=== PATIENT | female | born 1940 | race Caucasian/White ===

== ENCOUNTER 2016-08-29 07:33 | Inpatient (IN) | payer MEDICARE ==
[~2016-08-29] VITALS: Ht 149.9 cm; Wt 45.7 kg
[2016-08-29] VITALS (11 sets, daily range): BP systolic 101–152; BP diastolic 52–71; PULSE 77–109; RESP 16–18; O2SAT 92–100
--- NOTE | 2016-08-29 07:25 | ED.REPORT ---
HPI-Syncope Date of Service Aug 29, 2016 ED Provider: Eyad Badillo DO 76 year old female presents to the ER via EMS due to a witnessed syncopal event just prior to arrival. EMS reports that the patient's daughter saw the patient start to fall and was able to catch her and lower her to the ground. Patient reports that she awakened this morning "not feeling very well". Associated symptom of shaking chills, and diarrhea. Patient denies headache, head trauma, chest pain, SOB, and weakness/numbness/tingling. She recently finished a course of antibiotics to treat pneumonia. Her recently had surgery and is being treated for C. diff, and she has recently been very active in caring for him since he has been home from the hospital. Nursing Notes Stated Complaint: SYNCOPE Nursing Notes Reviewed: Yes Allergies: Coded Allergies: No Known Allergies (Unverified , 08/29/16) General Time Seen by Provider: 07:33 Chief Complaint Lost consciousness Hx Obtained From: Patient Arrived By: Ambulance Onset Occurred: Just prior to arrival Associated with: Denies: Chest pain, Fever, Headache, Numbness, Shortness of breath, Weakness Similar Sx Previous: No Past Medical History Past Medical History PVD Past Surgical History Reports: (x2) Smoking History Current Every Day Smoker Social History Other Social History: Review of Systems Constitutional: Reports: Chills, Malaise Respiratory: Denies: Non-productive cough, Shortness of breath Cardiovascular: Denies: Chest pain GI: Reports: Abdominal pain, Diarrhea, Denies: Nausea, Vomiting Musculoskeletal: Denies: Back pain, Extremity pain, Lumbar pain, Neck pain Neurologic: Reports: Syncope, Denies: Focal weakness, Headache, Numbness, Weakness Complete sys rev & neg: except as marked. Physical Exam Initial Vital Signs Vital Signs (First) Date Time Temp Pulse Resp B/P Pulse Ox O2 Delivery O2 Flow Rate FiO2 08/29/16 07:43 37.1 109 18 152/71 94 Room Air Initial VS: Reviewed Head / Eyes: Atraumatic, Normocephalic Neck: Supple, Non-tender, Full range of motion Abdomen / GI: Soft, Non-tender, No guarding, No rebound, No distention Upper Extremities: Vascular intact, Neuro intact, No swelling, No tenderness General/Constitutional: Awake, Alert, Well developed, Well nourished Respiratory / Chest: Breath sounds NL, Breath sounds = bilat, No respiratory distress, No rales, No rhonchi, No wheezing Cardiovascular: Heart rate NL, Regular rhythm, Heart sounds NL, No murmurs, Cap refill not delayed, Peripheral circulation NL Lower Extremity / Pelvis / MS: Inspection NL, No swelling, Non-tender, No erythema, No deformity, Neurologic intact, Vascular intact, No edema Neurologic: Oriented X3, Speech NL, No sensory deficits Tremulous. Interpretation & Diagnostics Lab Results Interpretation Result Diagram: 08/29/16 0825 08/29/16 0825 Test 08/29/16 08:25 08/29/16 09:55 White Blood Count 29.6th/mm3 (3.8-10.1) Red Blood Count 4.15mil/mm3 (3.90-5.20) Hemoglobin 12.7g/dL (12.0-15.6) Hematocrit 38.4% (35.0-46.0) Mean Corpuscular Volume 92.5fL (81-100) Mean Corpuscular Hemoglobin 30.6pg (27.0-35.0) Mean Corpuscular Hemoglobin Concent 33.1% (32.0-37.0) Red Cell Distribution Width 13.2% (12.3-15.4) Platelet Count 230bil/L (150-400) Neutrophils (%) (Auto) 88.4% (40-74) Lymphocytes (%) (Auto) 2.1% (14-46) Monocytes (%) (Auto) 8.6% (4-12) Eosinophils (%) (Auto) 0% (0-5) Basophils (%) (Auto) 0.1% (0-3) D-Dimer 5.7mg/L (<0.50) Sodium Level 139mEq/L (134-144) Potassium Level 3.4mEq/L (3.5-5.2) Chloride Level 103mEq/L (97-108) Carbon Dioxide Level 21mmol/L (18-29) Blood Urea Nitrogen 9mg/dL (8-27) Creatinine 0.64mg/dL (0.57-1.00) Estimat Glomerular Filtration Rate 129mL/min (>59) Glucose Level 107mg/dL (60-99) Calcium Level 7.6mg/dL (8.5-10.1) Magnesium Level 1.5mg/dL (1.6-2.6) Total Bilirubin 0.4mg/dL (0.0-1.2) Aspartate Amino Transf (AST/SGOT) 15U/L (0-50) Alanine Aminotransferase (ALT/SGPT) 11U/L (0-32) Alkaline Phosphatase 82U/L (25-165) Troponin T < 0.010ug/L (0.0-0.011) Total Protein 7.1g/dL (6.4-8.4) Albumin 3.2g/dL (3.4-5.0) Lactic Acid Level 1.0mmol/L (0.4-2.0) ECG Interpretation ECG Interpretation: Sinus rhythm, rate [address] changes Prolonged QT interval Time: 07:56 Interpreted by: ED physician X-Ray Chest Interpretation Chest Xray Interpretation: IMPRESSION: No acute cardiopulmonary disease. Dictated by: Nadir Conti RRA Interpreted: Patty Jacome MD on 08/29/2016 at 9:59 Transcribed by: TRACI on 08/29/2016 at 9:59 View: Portable, 1 view Interpretation / Wet Read by: Interpret - Radiologist CT Chest Interpretation IMPRESSION: 1. No evidence of pulmonary embolism. 2. Mild distal esophageal thickening with hiatal hernia. Thickening could be related to esophagitis and clinical correlation is recommended. Dictated by: Patty Jacome M.D. on 08/29/2016 at 10:50 Approved by: Patty Jacome M.D. on 08/29/2016 at 10:52 Study type: CT pulm angiogram Interpretation / Wet Read by: Interpret - Radiologist CT Abd / Pelvis Interpretation IMPRESSION: 1. Significant colonic thickening as described above most significant in the right and transverse colon. Findings are most likely related to colitis secondary to infection or inflammation. However, ischemic colitis should be considered. 2. Cholelithiasis without imaging evidence of cholecystitis. Dictated by: Patty Jacome M.D. on 08/29/2016 at 10:53 Approved by: Patty Jacome M.D. on 08/29/2016 at 10:59 Study type: Abdominal CT IV contrast Interpretation / Wet Read by: Interpret - Radiologist Re-Eval/Medical Decision Med Decision/Clinical Course Concern for C. difficile colitis. Profound leukocytosis at this time she is not in septic shock. She will be admitted. oral vancomycin initiated. Source of Hx: Old records Re-Evaluation/Progress : Time of Eval: 08:57 Re-Evaluation/Progress Note: Discussed lab results. Updated patient on the plan of care. Consultation : Referral / Consult Name: Jax Wang MD Consulted With: Hospitalist Call Returned at: 11:29 Insole Rasper: Will see patient, Agrees with eval, Agrees with plan, Accepts admit Counseled Regarding: Diagnosis, Lab results, Need for admission Discharge & Departure Impression: Primary Impression: Colitis Additional Impression: Syncope Disposition: ADMITTED TO HOSPITAL Discharge Condition All VS Reviewed: Yes Condition: Stable Referrals: Bia Simpson MD (PCP) Chance Attestation Portions of this note were transcribed by Una Willis. I, Dr. Badillo, personally performed the history, physical exam and medical decision-making; I reviewed and confirmed the accuracy of the information in the transcribed note. Signed by: Chance Bray, 08/29/2016 and 11:30 copies to: Bia Simpson MD, Timothy S DO Aug 29, 2016 07:25 UNA WILLIS Aug 29, 2016 07:40
[2016-08-29] MEDS ORDERED: 0.9% Sodium Chloride 1,000 ML IV ONE ×2 (07:41→09:55)
[2016-08-29] MEDS ORDERED: Ondansetron 2 mg/mL 2 mL Inj IV PRN (07:45)
[2016-08-29 08:42] LABS: BASOPHILS % (AUTO) 0.1 % (0-3); EOSINOPHILS % (AUTO) 0 % (0-5); MONOCYTES % (AUTO) 8.6 % (4-12); Mean Corpuscular Hemoglobin 30.6 pg (27.0-35.0); Mean Corpuscular Volume 92.5 fL (81-100); NEUTROPHILS % (AUTO) 88.4 % (40-74); Platelet Count 230 bil/L (150-400)
[2016-08-29 09:04] LABS: TROPONIN T < 0.010 ug/L (0.0-0.011)
[2016-08-29 09:13] LABS: Magnesium 1.5 mg/dL (1.6-2.6)
[2016-08-29] MEDS ORDERED: Magnesium Sulf 4 Gm/100 mL H2O 4 GM in IV Premix 1 EACH IV ONE (09:15)
--- NOTE | 2016-08-29 09:59 | DRSVH ---
PROCEDURE: X-RAY CHEST ONE VIEW, PORTABLE ([id number]) INDICATIONS: recent pneumonia, syncope TECHNIQUE: One view of the chest was acquired. COMPARISON: None. FINDINGS: Surgical changes and devices: None. Lungs and pleura: No pleural effusions or pneumothorax. Lungs are clear. Mediastinum: Mediastinal contours appear normal. Heart size is normal. Bones and chest wall: No suspicious bony lesions. Overlying soft tissues appear unremarkable. IMPRESSION: No acute cardiopulmonary disease. Dictated by: Nadir Conti [facility] Interpreted: Patty Jacome MD on 08/29/2016 at 9:59 Transcribed by: TRACI on 08/29/2016 at 9:59 Approved by: Patty Jacome M.D. on 08/29/2016 at 21:14
--- NOTE | 2016-08-29 10:54 | DRSVH ---
PROCEDURE: CT ANGIO CHEST PULMONARY EMBOLISM ([id number]) INDICATIONS: syncope, elevated ddimer TECHNIQUE: After the administration of intravenous contrast, 2 mm thick sections acquired from the pulmonary api perico to the posterior costophrenic angles. 3-dimensional maximum intensity projection (MIP) coronal a nd sagittal reformats were then acquired through the thorax. For radiation dose reduction, the follo wing was used: automated exposure control, adjustment of mA and/or kV according to patient size. COMPARISON: None. FINDINGS: Image quality: Excellent. Pulmonary arteries: Pulmonary arteries are normal in size, and demonstrate no intraluminal filling d efects to suggest central pulmonary embolism. Lungs and pleura: Lungs are clear. No pleural effusions or pneumothorax. Central and peripheral ai rways are patent. Mediastinum: Heart size is normal, without pericardial effusion. No mediastinal or hilar adenopathy . Thoracic aorta is normal in caliber and enhancement. Esophagus demonstrates mild distal thickenin g with hiatal hernia. Bones and chest wall: No suspicious bony lesions. Ribs and thoracic spine appear intact throughout. Thyroid gland is unremarkable. No axillary or supraclavicular adenopathy. Abdomen: Visualized upper abdominal solid organs appear normal in the early arterial phase of enhanc ement. IMPRESSION: 1. No evidence of pulmonary embolism. 2. Mild distal esophageal thickening with hiatal hernia. Thickening could be related to esophagitis a nd clinical correlation is recommended. Dictated by: Patty Jacome M.D. on 08/29/2016 at 10:50 Approved by: Patty Jacome M.D. on 08/29/2016 at 10:52
--- NOTE | 2016-08-29 11:00 | DRSVH ---
PROCEDURE: CT ABDOMEN AND PELVIS WITH CONTRAST ([id number]) INDICATIONS: WBC 29K, diarrhea, syncope, weakness TECHNIQUE: After the administration of intravenous contrast, 5 mm thick sections acquired from the diaphragm to the symphysis. 5 mm coronal and sagittal reformats were acquired. For radiation dose reduction, the following was used: automated exposure control, adjustment of mA and/or kV according to patient ursula renee COMPARISON: [facility], CT, CT ANGIO CHEST PE, 08/29/2016, 9:55. CT, ANGIO ABD W&W/O CON T., 02/13/2009, 10:01. FINDINGS: Image quality: Excellent. ABDOMEN: Lung bases: Lung bases are clear. Heart size is normal. Solid organs: Liver and spleen are normal in size and enhancement. Gallbladder demonstrates luminal calcifications without wall thickening.. Biliary system is non dilated. Pancreas enhances normally . There is approximate 8 mm thickening of the left adrenal gland.. Kidneys demonstrate normal size a nd enhancement, without hydronephrosis. Peritoneum and bowel: Bowel loops demonstrate significant thickening within the acscending and trans verse colon. Thickening, to a lesser extent is identified within the sigmoid and descending colon. Nodes and vessels: No retroperitoneal or mesenteric adenopathy by size criteria. Aorta demonstrates significant wall calcification within the distal portion extending into the common iliac arteries. Miscellaneous: No ventral hernias. PELVIS: Genitourinary: Bladder wall thickness is normal. Miscellaneous: No inguinal hernias or adenopathy. Bones: No suspicious bony lesions. No vertebral body compression fractures. IMPRESSION: 1. Significant colonic thickening as described above most significant in the right and transverse col on. Findings are most likely related to colitis secondary to infection or inflammation. However, isch emic colitis should be considered. 2. Cholelithiasis without imaging evidence of cholecystitis. Dictated by: Patty Jacome M.D. on 08/29/2016 at 10:53 Approved by: Patty Jacome M.D. on 08/29/2016 at 10:59
[2016-08-29] MEDS ORDERED: Vancomycin 125 mg Oral Capsule PO ONE ×2 (11:05→12:40)
[2016-08-29] MEDS ORDERED: Alum-Mag Hydrox-Simeth 30 mL Suspension PO PRN (11:55)
[2016-08-29] MEDS ORDERED: Polyethylene Glycol (PEG) 17 Gm Powder PO PRN (11:55)
[2016-08-29] MEDS ORDERED: Vancomycin 100 mg/mL Oral Solution TUBE SCH ×2 (12:00→14:30)
[2016-08-29] MEDS ORDERED: Potassium Chloride 20 mEq SR Tablet PO ONE (12:00)
[2016-08-29] MEDS ORDERED: metroNIDAZOLE Inj 500 MG in IV Premix 1 EACH IV SCH (12:00)
[2016-08-29] MEDS ORDERED: ALBU18HF INH (12:03)
--- NOTE | 2016-08-29 12:53 | NUR ---
Admit Pt admitted to floor. C/o some abd cramping at 4/10 but does not want a pain medication. Is alert and oriented x3. Placed on tele (sinus rhythm, high eighties). Bed locked in low position and call light within reach. Will continue to monitor.
[2016-08-29] MEDS: 0.9% Sodium Chloride 1,000 ML IV SCH ×3 (13:40→21:00)
--- NOTE | 2016-08-29 15:00 | CONS ---
[address] [address] CONSULTATION REPORT PATIENT: VESTA WYLIE : 1940 MR#: [id number] ADMIT: 08/29/2016 JOB ID: [id number] DATE OF SERVICE: 08/29/2016 INFECTIOUS DISEASE CONSULTATION: I thank Dr. Wang for this timely consult. REASON FOR CONSULTATION: Probable C difficile colitis. HISTORY OF THE PRESENT ILLNESS: The patient a 72-year-old woman whose relevant past medical history starts in July. Her history is one of an odd symmetry in that it corresponds so closely to a set of illnesses that her has also had. Back in July on around , both she and her developed cough, fever and chills. They both were seen at the [facility] in [place]. The patient was given a prescription for an unknown antibiotic (we are attempting to find out which one) and was sent home where she took the antibiotic and did fairly well. Her , on the other hand, was sent here to [facility] and admitted. During that admission, we found out he had both respiratory syncytial virus as well as pneumococcal pneumonia. He was treated appropriately with intravenous antibiotics and sent home only to be readmitted within the last few days with septic shock due to fulminant C. difficile colitis. He is currently in the ICU. The patient, on the other hand, noticed a few loose stools about that time she had pneumonia in mid July and was taking the oral antibiotics. She continued to have intermittent but infrequent loose bowel movements until yesterday when she developed abdominal cramps, fevers, chills, nausea and the passage of very frequent bowel movements up to about 10 times during the night which precluded any sleep. Because of this dramatic increase in the diarrhea that she has had off and on for a few weeks, and its association with the fever, she sought evaluation in the ED this morning. In the ED she was found to be tachycardic though afebrile. Basic labs were done which showed a white count of almost 30,000 with left shift, and she was appearing quite toxic. I was called from the ED by Dr. Wang who was very concerned that she might also have developed severe C. difficile. He and I discussed the case and she was placed on vancomycin orally 500 4x daily for possible very severe disease as well as IV Flagyl and admitted to the hospital. Early this afternoon, I am seeing the patient in the [facility] area. The patient tells me that she has had this stuttering course of diarrhea for three or four weeks, but it was much, much worse in the last 24 hours in association with the cramps, subjective fevers and chills as mentioned. She also notes she has developed a bit of a headache and has been feeling quite weak with both myalgias and arthralgias the past couple of days. She has not been sleeping well out of concern for her and last night because of the very severe diarrhea she has been having. She denies pulmonary or symptomatology. PAST MEDICAL HISTORY: Is surprisingly limited. The patient reports that she sometimes uses albuterol and is thought to have some underlying asthma. She also notes that she has had a bit of a slow and ongoing weight loss which has been unexplained but otherwise she really has nothing in the way of relevant past medical history. SOCIAL HISTORY: The patient was a significant cigarette smoker until 's Day when she and her developed pneumonia mentioned above. At about that time, she decided to quit and has not smoked for a month after really a lifelong smoking habit. She does not drink alcohol. Does not use illicit drugs. She was born and raised in [place], [place] and now lives on [address] with her . Since he has been so sick, she is staying with one of the daughters here in [place]. FAMILY HISTORY: Is notable for the remarkable fact that her also had pneumonia at the same time she did in July and also developed very severe diarrhea, his about five days ago and hers really just yesterday. They are both currently in the hospital. There is no family history of tuberculosis. REVIEW OF SYSTEMS: Was done in its entirety. The patient states she has a mild headache, which started a few days ago and has persisted. She denies visual complaints. She has no sore throat, sores in the mouth, odynophagia or dysphagia. No stiff neck. She denies cough, shortness of breath or chest pain. She has abdominal cramps which are localized to the lower abdomen. There has been some nausea and anorexia but no vomiting. She has had diarrhea now for four weeks off and on but it was pretty mild until yesterday when it became explosive and very frequent. There has been no blood in her stool. She notes her muscles and joints feel tight diffusely and that it has been going on for a couple days. She is still able to ambulate but is feeling very weak and near syncopal at times. The remainder of the review of systems is negative. PHYSICAL EXAMINATION: Reveals an afebrile woman, temperature 36.8, pulse 90, respiratory rate 18, blood pressure 117/66. She is saturating well on room air. Examination of the mental status reveals it to be completely clear. The patient is a fairly thin appearing woman with a BMI of only 19 and a weight of 43 kg. She states that her normal body weight when she was younger was always right at 110 or 50 kg so she has gradually lost about 15-17 pounds. She really cannot provide me with any sort of details on how fast this weight loss has occurred. As noted, current vital signs include temperature 36.8, blood pressure 117/66, pulse 90, respiratory rate 17. She is saturating well on room air. Examination of the head reveals no trauma. The eyes without conjunctivitis. Oral cavity without thrush, hairy leukoplakia or pharyngitis. Neck without adenopathy. The supraclavicular fossa are quite sunken bilaterally and it would appear that she has lost some weight. The neck is completely supple. No adenopathy is noted. The lungs quite clear. Cardiac tones distant with the isolation stethoscope I am using, but regular rate and rhythm at least and no very loud murmur. The abdomen has hypoactive bowel tones. The lower abdomen/pelvic area is tender to deep palpation, but no masses or hepatosplenomegaly or ascites are appreciated. The patient's joints have full range of motion. There is no evidence for synovitis. She does not have any skin rash. She is completely intact neurologically with good motor strength throughout. No evidence of thyromegaly. She has a peripheral IV which is infusing well and no other notable abnormalities. LABORATORIES: Include a white count 29,600, 88% neutrophils with a high white count. Creatinine is 0.64. Lactic acid is 1. LFTs are normal. Albumin 3.2. Micro studies include a pending stool multiplex PCR assay and blood cultures, all of which were just collected. The stool PCR results should be available within the hour. IMAGING: Includes a chest x-ray, which is basically clear, an angio CT which reveals no PE and mild distal esophageal thickening and most importantly a CT scan of the abdomen which was just done within the past couple hours. It showed significant colonic thickening, especially in the ascending and transverse colon, and to a lesser extent, in the sigmoid and descending colon. There is cholelithiasis without evidence of cholecystitis. IMPRESSION: This is an odd case in that the patient and her seem to be tracking exactly the same infectious disease problems. In mid July they both developed pneumonia. Her 's overall health is poorer than hers and it is not surprising that he eventually required admission to the hospital for treatment of pneumococcal pneumonia complicating RSV pneumonitis while the patient was able to do okay at home with oral antibiotics. They both then went on to develop some loose stools which were fairly mild in the beginning and then resulted in more fulminant disease and hospital admission. Again he was more ill and went to the intensive care unit where he is at this time where she has now been admitted to the [facility]. It is worth noting that her has been proven to have the NAP-1 strain of C. difficile which is known to be much more virulent than it is more pedestrian ancestor. One would assume that she will also have this more virulent strain of C. difficile, though we await laboratory confirmation of that. The patient is not critically ill I do not think at this time because she does not have evidence of renal impairment, lactic acidosis, altered mental status or shock, though she does have a very high white blood count. She has been started already as per my discussion with Dr. Wang on high-dose oral vanco and Flagyl. RECOMMENDATIONS: 1. We await the stool PCR studies. 2. Continue with vanco 500 4x daily orally which is the dose for life-threatening disease until we have more data and then perhaps we can drop back to a lower dose. 3. Will continue with Flagyl 500 q.8 hours at least until we have some better fix on how she is doing at which time we can probably drop it entirely and just treat her with vanco which is a superior agent. 4. Will continue to look for other possible sources of infection but I think will soon have definitive answer with the PCR so I would not order any major new investigations beyond our pending blood cultures at this time. Thank you very much for this timely consult.
--- NOTE | 2016-08-29 15:30 | PCM.HPMED ---
Subjective Date of Service Aug 29, 2016 Primary Provider: Admitting Physician: Jax Wang MD Primary Care Physician: Nophéctor Attending Physician: Jax Wang MD Chief Complaint: Syncope/2 hours Worsening Diarrhea/2 days History of Present Illness: 76-year-old lady with past medical history of PVD but has not seen any PCP for regular follow-up for 20 years came to the emergency room due to syncope of 2H and worsening diarrhea of 2 days. Patient and her had symptoms of pneumonia in mid July and hammonds treated with unspecified by mouth antibiotics . had improvement of pneumonia symptoms but continued worsening of symptoms and ended up being admitted to [facility] for respiratory failure due to pneumonia requiring BiPAP and high flow and discharged on 08/16. is readmitted 4 days ago for fulminant C. difficile colitis requiring pressor support and colectomy with end ileostomy. Her is still currently in ICU. This patient has been having on and off diarrhea for the last 4 weeks since being treated for pneumonia. She had worsening of her diarrhea in the last 2 days too many episodes to count overnight. This morning she had dizziness and syncope while standing in kitchen. Her daughter helped down to the floor and was brought to ED. No trauma to head. She has subjective fever and abdominal cramps. No other family member other than her has similar symptoms. ED Course: Initial BP 152/74, heart rate 109, afebrile, WBC 29.6, lactic acid 1.0, magnesium 1.5, potassium 2.4, d-dimer elevated at 5.7, CT chest negative for PE, CT abdomen Significant colonic thickening most significant in the right and transverse colon. 2 L NS gievn,empirically started on vancomycin by mouth given history of her husbands fulminant C. difficile . Stool sent eventually positive for C. difficile . 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 Patient has not seen any PCP for 20 years for regular checkups Surgical History Benign breast lump resection while section 2 Social History Hx Alcohol Use: No Hx Substance Use: No Smoking Status: Current Every Day Smoker (used to smoke 1 pack a day since age of 13, Quit 3 weeks ago) Exam Vital Signs Vital Sign - Last Date Time Temp Pulse Resp B/P Pulse Ox O2 Delivery O2 Flow Rate FiO2 08/29/16 13:36 36.8 90 18 117/66 93 Room Air Exam Gen. patient is lying comfortably in hospital bed HEENT: Dry tongue, Head is normocephalic atraumatic, Pupils equal and reactive, extraocular movements intact, Lungs clear to auscultation bilaterally Heart regular rate and rhythm without murmurs gallops or rubs Abdomen soft nontender without hepatosplenomegaly Extremities pulses are present dorsalis pedis posterior tibialis and radial. tSkin is warm and dry there are no rashes, Psych alert and oriented to person place and time Neuro cranial nerves II through XII are grossly intact Lymph: There is no lymphadenopathy appreciated in the cervical supra infraclavicular regions : no lucia Lab and Diagnostics Result Diagram: 08/29/1682408/29/16824 Microbiology Stool C. difficile positive X-Rays, CTs and MRIs PROCEDURE: CT ABDOMEN AND PELVIS WITH CONTRAST ([id number]) IMPRESSION: 1. Significant colonic thickening as described above most significant in the right and transverse colon. Findings are most likely related to colitis secondary to infection or inflammation. However, ischemic colitis should be considered. 2. Cholelithiasis without imaging evidence of cholecystitis. Dictated by: Patty Jacome M.D. on 08/29/2016 at 10:53 PROCEDURE: CT ANGIO CHEST PULMONARY EMBOLISM ([id number]) INDICATIONS: syncope, elevated ddimer IMPRESSION: 1. No evidence of pulmonary embolism. 2. Mild distal esophageal thickening with hiatal hernia. Thickening could be related to esophagitis and clinical correlation is recommended. Dictated by: Patty Jacome M.D. on 08/29/2016 at 10:50 Assessment & Plan 76-year-old lady with past medical history of PVD presented with syncope and diarrhea. # Severe C. difficile colitis,acute,poa -2L NS given in ED,will c/w 200ml/h -Patient started on vancomycin 500 mg by mouth every 6h and metronidazole 500 mg IV 3 times a day for severe C. difficile colitis given 's recent fulminant C. difficile colitis requiring pressor support and eventually colectomy -Contact/enteric precaution -Percocet and Zofran when necessary #Hyperkalemia and low magnesium, acute -Due to diarrhea -Replete and follow #Elevated d-dimer, acute -probably due to colitis -CTA negative for PE - will check LE duplex if any leg extremity asymmetry noted on subsequent exam. No asymmetry now #Mention of PVD -Patient not on any antiplatelet or statin -Recommend outpatient follow-up discussed code status,she is full code Patient admitted under inpatient status with expected length of stay > 2 midnights for severity of present symptoms, complexities of treatment plan and risk for adverse events Disposition: Pending clinical course Jax Wang MD Aug 29, 2016 15:30
[2016-08-29] MEDS ORDERED: Vancomycin 125 mg Oral Capsule PO SCH (18:00)
[2016-08-29] MEDS: Vancomycin 250 mg Oral Capsule PO SCH ×2 (18:57→23:51)
[2016-08-29] MEDS: metroNIDAZOLE Inj 500 MG in IV Premix 1 EACH IV SCH (21:00)
[2016-08-30] VITALS (8 sets, daily range): BP systolic 109–125; BP diastolic 54–65; PULSE 61–89; RESP 17–20; O2SAT 92–100
[2016-08-30] MEDS: metroNIDAZOLE Inj 500 MG in IV Premix 1 EACH IV SCH ×3 (04:31→21:02)
[2016-08-30] MEDS: 0.9% Sodium Chloride 1,000 ML IV SCH ×3 (04:31→23:49)
[2016-08-30] MEDS: oxyCODONE-Acetamin 5-325 mg Tablet PO PRN (04:44)
[2016-08-30] MEDS: Vancomycin 250 mg Oral Capsule PO SCH ×4 (06:06→23:49)
--- NOTE | 2016-08-30 06:32 | NUR ---
Shift Note Assumed pt care at 1900, pt a/o able to make needs known, notable multiple loose stools throughout night, pt continues with IVF, po and IV ABO, pt voided only 350 throughout night, bladder scanned at 5am only shows 153mls, pt on tele, wnl throughout night, qhrly checks done throughout night, call light in reach
[2016-08-30 08:46] LABS: BASOPHILS % (AUTO) 0.1 % (0-3); EOSINOPHILS % (AUTO) 0.3 % (0-5); MONOCYTES % (AUTO) 4.7 % (4-12); Mean Corpuscular Hemoglobin 30.4 pg (27.0-35.0); Mean Corpuscular Volume 94.9 fL (81-100); NEUTROPHILS % (AUTO) 86.3 % (40-74); Platelet Count 161 bil/L (150-400)
[2016-08-30 09:22] LABS: Magnesium 2.2 mg/dL (1.6-2.6); Phosphorus 2.2 mg/dL (2.5-4.9)
--- NOTE | 2016-08-30 13:06 | NUR ---
Palliative care note D/A: Palliative care not involved with care of Kelsie Cage. However, PC is consulting on her spouse Kunal Cage who was also admitted at [facility] after falling ill at home with similar illness. Pt spouse Kunal Cage is in CCU and is very gravely ill. Dr. Linares has met with pt Kelsie Cage for about an hour today discussing her spouse's condition and working with pt on POLST for Kunal. Phone call to [facility] Marisol EATON and have left her a message that pt spouse is also a pt at [facility] and currently in CCU and is noted to be very ill. P: Palliative to continue working with pt regarding care of her spouse. Christine ERWIN, CCM
--- NOTE | 2016-08-30 13:24 | NUR ---
Social Work-initial assessment: Data & Asessment: See initial assessment. EMR Reviewed. Pt is a 76 y/o female who was admitted on 08/29/16 for Syncope and colitis per H&P. Pt's insurance is [facility] and patient does not have a PCP. Patient readmission score is 0-no risk. SW met with patient to discuss discharge planning, SW role explained and initial assessment complete. Pt is alert and oriented x3. Pt resides at home with her family in a single level home with two steps to enter where pt remains independent with basic ADLs. Patient does not drive. Pt has no HH or SNF history. Pt has not completed DPOA/ advanced directive and is not interested in information. Patient's NOK is her daughter, Lary Lombardi [phone]. Patient has no continuous churn buttermaker care or VA benefits. Patient is currently SBA in the room. SW does not anticipate that patient will have and needs at discharge. Pt's family to provide transport home at discharge. SW provided phone number and plan on white board in room. SW will continue to follow. Plan:Patient to likely discharge home with her daughter. Pt's daughter is supportive. SW will continue to follow. Marisol Brock LMSW, FERNANDO Addendum: 08/30/16 at 1333 by MARISOL BROCK Amended: Links added.
--- NOTE | 2016-08-30 13:54 | NUR ---
Appetite/Concerns Patient still has no appetite this morning, able to tolerate coffee. Offered fruit plate at lunch, tolerating. We will arrange patient to speak with who is also an in patient as per her request. Dr. Linares came in and explain to patient about her 's prognosis. Daughter and brother in law at bedside this pm. We will continue to monitor.
--- NOTE | 2016-08-30 14:59 | PCM.PNMED ---
Subjective Date of Service Aug 30, 2016 Subjective diarrhea getting better,pain also better Exam Vital Signs Vital Sign - Last Date Time Temp Pulse Resp B/P Pulse Ox O2 Delivery O2 Flow Rate FiO2 08/30/16 13:04 36.9 67 18 121/65 100 Room Air Intake and Output 08/29/16 08/29/16 08/30/16 Cumulative From/Thru 15:00 23:00 07:00 08/29/16 07:43 - 08/30/16 04:45 Intake Total 2000 ml 980 ml 2405 ml 5385 ml Output Total 700 ml 1200 ml 1900 ml Balance 2000 ml 280 ml 1205 ml 3485 ml Intake Oral 400 ml 150 ml 550 ml IV Total 2000 ml 580 ml 2255 ml 4835 ml Output Urine Total 300 ml 350 ml 650 ml Stool Total 850 ml 850 ml Urine/Stool Mix 400 ml 400 ml Exam Gen. patient is lying comfortably in hospital bed HEENT: Dry tongue, Head is normocephalic atraumatic, Pupils equal and reactive, extraocular movements intact, Lungs clear to auscultation bilaterally Heart regular rate and rhythm without murmurs gallops or rubs Abdomen soft nontender without hepatosplenomegaly Extremities pulses are present dorsalis pedis posterior tibialis and radial. Skin is warm and dry there are no rashes, Psych alert and oriented to person place and time Neuro cranial nerves II through XII are grossly intact Lymph: There is no lymphadenopathy appreciated in the cervical supra infraclavicular regions : no lucia IVs and Medications Medications Reviewed: Medications were reviewed in detail Lab and Diagnostics Result Diagram: 08/30/16 0800 08/30/16 0800 Microbiology Stool C. difficile positive X-Rays, CTs and MRIs PROCEDURE: CT ABDOMEN AND PELVIS WITH CONTRAST ([id number]) IMPRESSION: 1. Significant colonic thickening as described above most significant in the right and transverse colon. Findings are most likely related to colitis secondary to infection or inflammation. However, ischemic colitis should be considered. 2. Cholelithiasis without imaging evidence of cholecystitis. Dictated by: Patty Jacome M.D. on 08/29/2016 at 10:53 PROCEDURE: CT ANGIO CHEST PULMONARY EMBOLISM ([id number]) INDICATIONS: syncope, elevated ddimer IMPRESSION: 1. No evidence of pulmonary embolism. 2. Mild distal esophageal thickening with hiatal hernia. Thickening could be related to esophagitis and clinical correlation is recommended. Dictated by: Patty Jacome M.D. on 08/29/2016 at 10:50 Assessment & Plan 76-year-old lady with past medical history of PVD presented with syncope and diarrhea. # Severe C. difficile colitis,acute,poa -2L NS given in ED,will c/w 200ml/h -Patient started on vancomycin 500 mg by mouth every 6h and metronidazole 500 mg IV 3 times a day for severe C. difficile colitis given 's recent fulminant C. difficile colitis requiring pressor support and eventually colectomy -Contact/enteric precaution -Percocet and Zofran when necessary #Hyperkalemia and low magnesium, acute,resolved -Due to diarrhea -Replete and follow #Elevated d-dimer, acute -probably due to colitis -CTA negative for PE - will check LE duplex if any leg extremity asymmetry noted on subsequent exam. No asymmetry now #Mention of PVD -Patient not on any antiplatelet or statin -Recommend outpatient follow-up discussed code status,she is full code Disposition: discharge in 2-3 days Jax Wang MD Aug 30, 2016 14:59
[2016-08-30] MEDS: Ondansetron 2 mg/mL 2 mL Inj IVPUSH PRN (21:11)
--- NOTE | 2016-08-30 21:51 | NUR ---
Nausea Patient c/o nausea still the madanny helped w/abd pain gave 4mg Zofran w/effect Addendum: 08/31/16 at 0635 by JOHN MCDONNELL RN Medicated x1 more time for nausea through night and once for abd pain 1percocet gvn w/effect
[2016-08-31] VITALS (8 sets, daily range): BP systolic 127–158; BP diastolic 65–72; PULSE 58–71; RESP 16–18; O2SAT 93–94
[2016-08-31] MEDS: Ondansetron 2 mg/mL 2 mL Inj IVPUSH PRN ×4 (04:31→21:14)
[2016-08-31] MEDS: metroNIDAZOLE Inj 500 MG in IV Premix 1 EACH IV SCH ×3 (05:10→21:05)
[2016-08-31] MEDS: oxyCODONE-Acetamin 5-325 mg Tablet PO PRN ×2 (05:18→16:27)
[2016-08-31] MEDS: Vancomycin 250 mg Oral Capsule PO SCH ×4 (06:10→23:57)
[2016-08-31 06:58] LABS: BASOPHILS % (AUTO) 0.1 % (0-3); EOSINOPHILS % (AUTO) 0.6 % (0-5); MONOCYTES % (AUTO) 6.7 % (4-12); Mean Corpuscular Hemoglobin 30.4 pg (27.0-35.0); Mean Corpuscular Volume 95.1 fL (81-100); NEUTROPHILS % (AUTO) 81.9 % (40-74); Platelet Count 191 bil/L (150-400)
[2016-08-31] MEDS: 0.9% Sodium Chloride 1,000 ML IV SCH ×3 (10:08→19:37)
--- NOTE | 2016-08-31 10:56 | NUR ---
[facility] signed
--- NOTE | 2016-08-31 14:31 | PCM.PNMED ---
Subjective Date of Service Aug 31, 2016 Subjective diarrhea continues to improve .afebrile,abdominal pain better. Exam Vital Signs Vital Sign - Last Date Time Temp Pulse Resp B/P Pulse Ox O2 Delivery O2 Flow Rate FiO2 08/31/16 11:03 36.6 71 18 127/66 94 08/31/16 04:47 Room Air Intake and Output 08/30/16 08/30/16 08/31/16 Cumulative From/Thru 15:00 23:00 07:00 08/29/16 07:43 - 08/31/16 06:12 Intake Total 2078 ml 1440 ml 8903 ml Output Total 400 ml 750 ml 3050 ml Balance 1678 ml 690 ml 5853 ml Intake Oral 468 ml 120 ml 1138 ml IV Total 1610 ml 1320 ml 7765 ml Output Urine Total 300 ml 450 ml 1400 ml Stool Total 300 ml 1150 ml Urine/Stool Mix 100 ml 500 ml # Bowel Movements 2 2 Exam Gen. patient is lying comfortably in hospital bed HEENT: Dry tongue, Head is normocephalic atraumatic, Lungs clear to auscultation bilaterally Heart regular rate and rhythm without murmurs gallops or rubs Abdomen soft nontender without hepatosplenomegaly Extremities pulses are present dorsalis pedis posterior tibialis and radial. Skin is warm and dry there are no rashes, Psych alert and oriented to person place and time Neuro cranial nerves II through XII are grossly intact Lymph: There is no lymphadenopathy appreciated in the cervical supra infraclavicular regions : no lucia IVs and Medications Medications Reviewed: Medications were reviewed in detail Lab and Diagnostics Result Diagram: 08/31/16 0632 08/31/16 0632 Microbiology Stool C. difficile positive X-Rays, CTs and MRIs PROCEDURE: CT ABDOMEN AND PELVIS WITH CONTRAST ([id number]) IMPRESSION: 1. Significant colonic thickening as described above most significant in the right and transverse colon. Findings are most likely related to colitis secondary to infection or inflammation. However, ischemic colitis should be considered. 2. Cholelithiasis without imaging evidence of cholecystitis. Dictated by: Patty Jacome M.D. on 08/29/2016 at 10:53 PROCEDURE: CT ANGIO CHEST PULMONARY EMBOLISM ([id number]) INDICATIONS: syncope, elevated ddimer IMPRESSION: 1. No evidence of pulmonary embolism. 2. Mild distal esophageal thickening with hiatal hernia. Thickening could be related to esophagitis and clinical correlation is recommended. Dictated by: Patty Jacome M.D. on 08/29/2016 at 10:50 Assessment & Plan 76-year-old lady with past medical history of PVD presented with syncope and diarrhea. # Severe C. difficile colitis,acute,poa -2L NS given in ED,will c/w 100ml/h -Patient started on vancomycin 500 mg by mouth every 6h and metronidazole 500 mg IV 3 times a day for severe C. difficile colitis given 's recent fulminant C. difficile colitis requiring pressor support and eventually colectomy -Contact/enteric precaution -Percocet and Zofran when necessary #Hyperkalemia and low magnesium, acute,resolved -Due to diarrhea -Replete and follow #Elevated d-dimer, acute -probably due to colitis -CTA negative for PE - will check LE duplex if any leg extremity asymmetry noted on subsequent exam. No asymmetry now #Mention of PVD -Patient not on any antiplatelet or statin -Recommend outpatient follow-up discussed code status,she is full code Disposition: discharge in 2-3 days Jax Wang MD Aug 31, 2016 14:31
--- NOTE | 2016-08-31 15:31 | NUR ---
Output Patient has only had a total of 100mls dark claire/brown urinary output this shift. Hospitalist made aware. No new orders received. Addendum: 08/31/16 at 1853 by NADIYA CABRAL RN Pt has not had any additional output today. Bladder scanned, 132mls. Hospitalist paged and made aware.
[2016-08-31 21:06] LABS: APPEARANCE,URINE CLOUDY (CLEAR,HAZY); COLOR,URINE DARK YELLOW (YELLOW); OCCULT BLOOD,URINE LARGE (NEGATIVE); UROBILINOGEN,URINE NORMAL (NORMAL)
--- NOTE | 2016-08-31 22:08 | NUR ---
emotional support spoke to patient about her . patient very honest about his condition. states "he wouldn't want to be this way." listened to patient's past memories of her . 25 years. given emotional support
[2016-09-01] VITALS (7 sets, daily range): BP systolic 142–162; BP diastolic 63–81; PULSE 65–85; RESP 18–20; O2SAT 94–95
[2016-09-01] MEDS: 0.9% Sodium Chloride 1,000 ML IV SCH ×2 (02:02→07:05)
[2016-09-01] MEDS: metroNIDAZOLE Inj 500 MG in IV Premix 1 EACH IV SCH (04:29)
[2016-09-01 06:32] LABS: BASOPHILS % (AUTO) 0.4 % (0-3); EOSINOPHILS % (AUTO) 1.2 % (0-5); MONOCYTES % (AUTO) 6.6 % (4-12); Mean Corpuscular Hemoglobin 30.4 pg (27.0-35.0); Mean Corpuscular Volume 93.6 fL (81-100); NEUTROPHILS % (AUTO) 62.2 % (40-74)
[2016-09-01] MEDS: Vancomycin 250 mg Oral Capsule PO SCH (07:04)
[2016-09-01] MEDS ORDERED: Vancomycin 125 mg Oral Capsule PO SCH (08:30)
[2016-09-01] MEDS: Lactated Ringer's 1,000 ML IV SCH ×2 (08:42→18:42)
--- NOTE | 2016-09-01 12:14 | NUR ---
Social Work: Readiness for d/c Data: Pt is on day 3 of hospitalization. EMR reviewed. Pt discussed in rounds. MD states pt likely to d/c tomorrow. No d/c planning needs identified at this time. PECAN HULLER will continue to follow. Assessment: Pt who is independent at baseline. Plan: Pt will d/c home via POV when medically stable. No d/c planning needs identified at this time. PECAN HULLER will continue to follow. UMA Kincaid
--- NOTE | 2016-09-01 13:10 | NUR ---
Ambulation Patient ambulated approximately 40 feet in room as SBA for safety. Pt reported feeling weak, but denied SOB. Pt became mildly SOB when boosting self back into bed, resolved quickly.
[2016-09-01] MEDS: Vancomycin 125 mg Oral Capsule PO SCH ×2 (13:24→18:42)
--- NOTE | 2016-09-01 13:55 | PCM.PNMED ---
Subjective Date of Service Sep 01, 2016 Subjective Frequency of diarrhea significantly improved. Patient has poor oral intake. Probably because of stress. Her remains critical in ICU and dying. Afebrile. Exam Vital Signs Vital Sign - Last Date Time Temp Pulse Resp B/P Pulse Ox O2 Delivery O2 Flow Rate FiO2 09/01/16 13:26 36.7 68 18 142/70 94 Room Air Intake and Output 08/31/16 08/31/16 09/01/16 Cumulative From/Thru 15:00 23:00 07:00 08/29/16 07:43 - 09/01/16 04:36 Intake Total 1242 ml 1574 ml 51239 ml Output Total 100 ml 600 ml 3750 ml Balance 1142 ml 974 ml 7969 ml Intake Oral 100 ml 1238 ml IV Total 1242 ml 1474 ml 78542 ml Output Urine Total 100 ml 600 ml 2100 ml Stool Total 1150 ml Urine/Stool Mix 500 ml # Bowel Movements 2 Exam Gen. patient is lying comfortably in hospital bed HEENT: wet tongue, Head is normocephalic atraumatic, Lungs clear to auscultation bilaterally Heart regular rate and rhythm without murmurs gallops or rubs Abdomen soft nontender without hepatosplenomegaly Extremities pulses are present dorsalis pedis posterior tibialis and radial. Skin is warm and dry there are no rashes, Psych alert and oriented to person place and time Neuro cranial nerves II through XII are grossly intact Lymph: There is no lymphadenopathy appreciated in the cervical supra infraclavicular regions : no lucia IVs and Medications Medications Reviewed: Medications were reviewed in detail Lab and Diagnostics Result Diagram: 09/01/1615 09/01/1615 Microbiology Stool C. difficile positive X-Rays, CTs and MRIs PROCEDURE: CT ABDOMEN AND PELVIS WITH CONTRAST ([id number]) IMPRESSION: 1. Significant colonic thickening as described above most significant in the right and transverse colon. Findings are most likely related to colitis secondary to infection or inflammation. However, ischemic colitis should be considered. 2. Cholelithiasis without imaging evidence of cholecystitis. Dictated by: Patty Jacome M.D. on 08/29/2016 at 10:53 PROCEDURE: CT ANGIO CHEST PULMONARY EMBOLISM ([id number]) INDICATIONS: syncope, elevated ddimer IMPRESSION: 1. No evidence of pulmonary embolism. 2. Mild distal esophageal thickening with hiatal hernia. Thickening could be related to esophagitis and clinical correlation is recommended. Dictated by: Patty Jacome M.D. on 08/29/2016 at 10:50 Assessment & Plan 76-year-old lady with past medical history of PVD presented with syncope and diarrhea. # Severe C. difficile colitis,acute,poa -2L NS given in ED,will c/w 100ml/h -Patient initially started on vancomycin 500 mg by mouth every 6h and metronidazole 500 mg IV 3 times a day for severe C. difficile colitis given 's recent fulminant C. difficile colitis requiring pressor support and eventually colectomy. -Diarrhea significantly improved, will stop metronidazole and lower vancomycin to 125 mg by mouth 4 times a day. -Contact/enteric precaution -Percocet and Zofran when necessary #Hyperkalemia and low magnesium, acute,resolved -Due to diarrhea -Replete and follow #Elevated d-dimer, acute -probably due to colitis -CTA negative for PE - will check LE duplex if any leg extremity asymmetry noted on subsequent exam. No asymmetry now #Mention of PVD -Patient not on any antiplatelet or statin -Recommend outpatient follow-up discussed code status,she is full code Disposition: Possible discharge tomorrow. She had low UOP yesterday,will monitor RFT on IV fluids Jax Wang MD Sep 01, 2016 13:55
--- NOTE | 2016-09-01 17:22 | NUR ---
Appetite Appetite very decreased, patient has had one yogurt all shift and 200mls water. Patient denies nausea or increased pain after taking in PO. Patient has been encouraged to take in more PO, but continues to decline.
[2016-09-02 00:38] VITALS: BP 169/72; PULSE 68; RESP 17; O2SAT 95
[2016-09-02] MEDS: Vancomycin 125 mg Oral Capsule PO SCH ×3 (00:40→12:43)
--- NOTE | 2016-09-02 02:51 | NUR ---
SOB on exert patient called after using bsc c/o difficulty breathing 02 sat >93% encouraged to call next time up noted she seemed to struggle with blankets tubing and wires was much easier with assist getting up and back without becoming so winded!
[2016-09-02] MEDS: Lactated Ringer's 1,000 ML IV SCH (04:42)
[2016-09-02 06:45] VITALS: BP 168/75; PULSE 69; RESP 18; O2SAT 93
[2016-09-02 09:12] VITALS: PULSE 77
[2016-09-02 09:41] LABS: BASOPHILS % (AUTO) 0.3 % (0-3); EOSINOPHILS % (AUTO) 0.9 % (0-5); MONOCYTES % (AUTO) 7.8 % (4-12); Mean Corpuscular Hemoglobin 30.1 pg (27.0-35.0); Mean Corpuscular Volume 90.2 fL (81-100); NEUTROPHILS % (AUTO) 71.2 % (40-74); Platelet Count 256 bil/L (150-400)
[2016-09-02 10:08] LABS: Magnesium 1.6 mg/dL (1.6-2.6)
[2016-09-02] MEDS ORDERED: Magnesium Sulf 2 Gm/50mL Water 2 GM in IV Premix 1 EACH IV ONE (10:45)
[2016-09-02] MEDS ORDERED: Potassium Chloride Inj 30 MEQ in Dextrose 5% 500 ML IV ONE (10:45)
[2016-09-02] MEDS ORDERED: Potassium Chloride 20 mEq SR Tablet PO ONE (10:45)
[2016-09-02 11:36] VITALS: BP 173/70; PULSE 86; RESP 16; O2SAT 92
[2016-09-02 14:05] LABS: Magnesium 2.3 mg/dL (1.6-2.6)
--- NOTE | 2016-09-02 14:26 | NUR ---
IV Pt complained that IV was leaking. Tried to flush IV and it was infiltrated. Looked for IV site, pt stated she is a hard start. Charge nurse looked, and didn't see a good site either. Paged IV therapy. IV placed in left wrist by IV therapy. Potassium infusing, pt c/o burning in arm. Slowed rate down x2. Now infusing at 100mls/hr.
--- NOTE | 2016-09-02 14:47 | NUR ---
Scheduled a follow up appointment with the [facility] for 1:30 pm with per SECURITIES SALES ASSOCIATE. -updated [employer] SALES ASSOCIATE Addendum: 09/02/16 at 1449 by VERONICA CHURCH .
--- NOTE | 2016-09-02 14:47 | PCM.DIMED ---
Discharge Instructions Date of Service Sep 02, 2016 Dates of Hospitalization Aug 29, 2016 at 11:40 Discharge Diagnosis Discharge Diagnosis # Severe C. difficile colitis,acute,poa #Hypokalemia and low magnesium, acute,resolved #Hypertension,chronic # History of PVD Diet No restrictions Activity Limited until seen by PCP Call your provider Fever or Chills, Shortness of breath, Bleeding, Chest pain, Vomitting, Excessive diarrhea, Weakness (unilateral) Patient Instructions You were hospitalized due to clostridium deficile colitis. You have been treated with oral vancomycin and IV flagyl as well as IV fluids. Please take vancomycin 125mg po 4 times a day for 11 more days. Please get a PCP and follow up with in 1-2 weeks. You had elevated blood pressure in hospital ,please check it at home and discuss with PCP. Follow-up plan follow up with PCP once you get a new PCP .You may call [facility] residency clinic if they accept new patients . Jax Wang MD Sep 02, 2016 14:47
[2016-09-02] MEDS ORDERED: VANC125C3 PO (14:48)
--- NOTE | 2016-09-02 14:54 | PCM.DC.MED ---
Discharge Summary Date of Service Sep 02, 2016 Dates of Hospitalization Date of Hospital Admission Aug 29, 2016 at 11:40 Date of Discharge: Sep 02, 2016 Providers: Admitting Physician: Jax Tucker MD Primary Care Physician: Nophéctor Attending Physician: Jax Tucker MD Diagnosis at Time of Discharge Diagnosis at Time of Discharge # Severe C. difficile colitis,acute,poa #Hypokalemia and low magnesium, acute,resolved #Hypertension,chronic # History of PVD Consultations ID Dr Carver Procedures XRay, CTs & MRIs PROCEDURE: CT ABDOMEN AND PELVIS WITH CONTRAST ([id number]) IMPRESSION: 1. Significant colonic thickening as described above most significant in the right and transverse colon. Findings are most likely related to colitis secondary to infection or inflammation. However, ischemic colitis should be considered. 2. Cholelithiasis without imaging evidence of cholecystitis. Dictated by: Patty Jacome M.D. on 08/29/2016 at 10:53 PROCEDURE: CT ANGIO CHEST PULMONARY EMBOLISM ([id number]) INDICATIONS: syncope, elevated ddimer IMPRESSION: 1. No evidence of pulmonary embolism. 2. Mild distal esophageal thickening with hiatal hernia. Thickening could be related to esophagitis and clinical correlation is recommended. Dictated by: Patty Jacome M.D. on 08/29/2016 at 10:50 Brief History per HPI by me on 08/29/16 76-year-old lady with past medical history of PVD but has not seen any PCP for regular follow-up for 20 years came to the emergency room due to syncope of 2H and worsening diarrhea of 2 days. Patient and her had symptoms of pneumonia in mid July and hammonds treated with unspecified by mouth antibiotics . had improvement of pneumonia symptoms but continued worsening of symptoms and ended up being [facility] failure due to pneumonia requiring BiPAP and high flow and discharged on 08/16. is readmitted 4 days ago for fulminant C. difficile colitis requiring pressor support and colectomy with end ileostomy. Her is still currently in ICU. This patient has been having on and off diarrhea for the last 4 weeks since being treated for pneumonia. She had worsening of her diarrhea in the last 2 days too many episodes to count overnight. This morning she had dizziness and syncope while standing in kitchen. Her daughter helped down to the floor and was brought to ED. No trauma to head. She has subjective fever and abdominal cramps. No other family member other than her has similar symptoms. ED Course: Initial BP 152/74, heart rate 109, afebrile, WBC 29.6, lactic acid 1.0, magnesium 1.5, potassium 2.4, d-dimer elevated at 5.7, CT chest negative for PE, CT abdomen Significant colonic thickening most significant in the right and transverse colon. 2 L NS gievn,empirically started on vancomycin by mouth given history of her husbands fulminant C. difficile . Stool sent eventually positive for C. difficile . Hospital Course 76-year-old lady with past medical history of PVD presented with syncope and diarrhea. # Severe C. difficile colitis,acute,poa -2L NS given in ED,will c/w 100ml/h -Patient initially started on vancomycin 500 mg by mouth every 6h and metronidazole 500 mg IV 3 times a day for severe C. difficile colitis given 's recent fulminant C. difficile colitis requiring pressor support and eventually colectomy. -Diarrhea resolved, stopped metronidazole and lowered vancomycin to 125 mg by mouth 4 times a day.will discharge her on vanco po for 11 more days . -patients of c.dif yesterday in ICU ,condolences and emotional support offered #Hypokalemia and low magnesium, acute,resolved -Due to diarrhea -Repleted with IV,improved up on doischarge,no need to supplement ,diarrhea resolved #Elevated d-dimer, acute -probably due to colitis -CTA negative for PE - No asymmetry now in legs #Mention of PVD -Patient not on any antiplatelet or statin -Recommend outpatient follow-up discussed code status,she is full code Disposition: discharge home condition on discharge stable Exam Vital Signs (Last) Date Time Temp Pulse Resp B/P Pulse Ox O2 Delivery O2 Flow Rate FiO2 09/02/16 11:36 36.6 86 16 173/70 92 Room Air Exam Gen. patient is lying comfortably in hospital bed HEENT: wet tongue, Head is normocephalic atraumatic, Lungs clear to auscultation bilaterally Heart regular rate and rhythm without murmurs gallops or rubs Abdomen soft nontender without hepatosplenomegaly Extremities . Skin is warm and dry there are no rashes, Psych alert and oriented to person place and time Neuro cranial nerves II through XII are grossly intact Lymph: There is no lymphadenopathy appreciated in the cervical area Test 08/29/16 08:25 08/29/16 09:55 08/30/16 08:00 08/31/16 19:55 D-Dimer 5.7mg/L (<0.50) Troponin T < 0.010ug/L (0.0-0.011) Lactic Acid Level 1.0mmol/L (0.4-2.0) Phosphorus Level 2.2mg/dL (2.5-4.9) Urine Color Dark yellow (YELLOW) Urine Appearance Cloudy (CLEAR,HAZY) Urine pH 6.0 (5.0-8.0) Urine Specific [place] 1.020 (1.003-1.035) Urine Protein 30mg/dL (NEG,TRACE) Urine Glucose (UA) Negativemg/dL (NEGATIVE) Urine Ketones 15mg/dL (NEGATIVE) Urine Occult Blood Large (NEGATIVE) Urine Nitrite Positive (NEGATIVE) Urine Bilirubin Negative (NEGATIVE) Urine Urobilinogen Normalmg/dL (NORMAL) Urine Leukocyte Esterase Small (NEGATIVE) Urine RBC >50/hpf (0-2) Urine WBC 6-10/hpf (0-5) Urine Epithelial Cells Moderate/hpf (NONE-MOD) Urine Crystals None seen (NONE SEEN) Urine Bacteria Few/hpf (NONE-FEW) Urine Hyaline Casts None/lpf (NONE) Urine Granular Casts None seen (NONE SEEN) Urine Waxy Casts None seen (NONE SEEN) Urine Red Blood Cell Casts None seen (NONE SEEN) Urine White Blood Cell Casts None seen (NONE SEEN) Urine Mucus None seen (None Seen) Urine Trichomonas None seen (NONE SEEN) Urine Yeast None (NONE SEEN) Urinalysis Comment None Urine Culture Reflexed Indicated Test 09/02/16 09:30 09/02/16 13:20 White Blood Count 10.7th/mm3 (3.8-10.1) Red Blood Count 4.28mil/mm3 (3.90-5.20) Hemoglobin 12.9g/dL (12.0-15.6) Hematocrit 38.6% (35.0-46.0) Mean Corpuscular Volume 90.2fL (81-100) Mean Corpuscular Hemoglobin 30.1pg (27.0-35.0) Mean Corpuscular Hemoglobin Concent 33.4% (32.0-37.0) Red Cell Distribution Width 14.0% (12.3-15.4) Platelet Count 256bil/L (150-400) Neutrophils (%) (Auto) 71.2% (40-74) Lymphocytes (%) (Auto) 19.2% (14-46) Monocytes (%) (Auto) 7.8% (4-12) Eosinophils (%) (Auto) 0.9% (0-5) Basophils (%) (Auto) 0.3% (0-3) Total Bilirubin 0.2mg/dL (0.0-1.2) Aspartate Amino Transf (AST/SGOT) 19U/L (0-50) Alanine Aminotransferase (ALT/SGPT) 10U/L (0-32) Alkaline Phosphatase 71U/L (25-165) Total Protein 5.6g/dL (6.4-8.4) Albumin 2.7g/dL (3.4-5.0) Sodium Level 138mEq/L (134-144) Potassium Level 3.6mEq/L (3.5-5.2) Chloride Level 102mEq/L (97-108) Carbon Dioxide Level 20mmol/L (18-29) Blood Urea Nitrogen 3mg/dL (8-27) Creatinine 0.49mg/dL (0.57-1.00) Estimat Glomerular Filtration Rate 175mL/min (>59) Glucose Level 121mg/dL (60-99) Calcium Level 7.6mg/dL (8.5-10.1) Magnesium Level 2.3mg/dL (1.6-2.6) Microbiology Results Stool C. difficile positive Discharge Medications Discharge Medications Vancomycin (Vancomycin) 125 Mg Capsule 125 MG PO Q6H Prescribed by: JAX TUCKER MD As needed Albuterol Sulfate (Ventolin HFA Inhaler) 200 Puff/18 Gm Inhaler 2 PUFFS INH Q4- 5H PRN PRN For Shortness of Breath (Reported) Followup Plan Disposition: home Follow-up plan follow up with PCP once you get a new PCP .You may call [facility] residency clinic if they accept new patients . Discharge Diet: No restrictions Discharge Activity: Limited until seen by PCP Patient Instructions You were hospitalized due to clostridium deficile colitis. You have been treated with oral vancomycin and IV flagyl as well as IV fluids. Please take vancomycin 125mg po 4 times a day for 11 more days. Please get a PCP and follow up with in 1-2 weeks. You had elevated blood pressure in hospital ,please check it at home and discuss with PCP. Time spent 35 minutes counselling patient Jax Tucker MD Sep 02, 2016 14:54
--- NOTE | 2016-09-02 15:33 | PROG NOTE ---
[address] [address] PROGRESS NOTE PATIENT: VESTA WYLIE : 1940 MR#: [id number] ADMIT: 08/29/2016 JOB ID: [id number] DATE: 09/02/2016 REASON FOR FOLLOWUP: Severe C. difficile colitis. INTERVAL HISTORY: The patient notes the frequency and urgency of her bowel movements has decreased somewhat though she still has at times uncontrolled fecal incontinence. She notes that her abdominal cramps and pain have diminished and that she no longer has fever or chills. She has relatively poor oral intake at this point, as she does not have much in the way of appetite. It is noteworthy that the patient's over the weekend because of his C. difficile colitis infection which was associated with profound septic shock and multiorgan system failure. PHYSICAL EXAMINATION: Reveals an afebrile woman. Temperature 36.6, pulse 86, respiratory rate 16, blood pressure 173/70. She is saturating reasonably well, 92% on room air. Mental status is clear, though her mood is understandably depressed. Oral cavity with relatively poor dentition but no pharyngitis. Lungs with reasonable air flow bilaterally. A few crackles heard. Abdomen is soft and nontender and improved over what I saw three days ago when I first evaluated her. No skin rashes noted. LABORATORIES: Include white blood count 10,000, down from 30,000 five days ago. The differential on that white count is completely normal. Creatinine is 0.49. LFTs are normal. Albumin 2.7. Urinalysis without significant pyuria. Urine has grown Enterococcus faecalis which is pansusceptible. Stool of course was PCR positive. IMPRESSION: The patient is improving as expected on oral vancomycin. Recall that when we first saw her four days ago, we had recommended high-dose oral vancomycin as well as IV Flagyl because the patient was quite ill with a white count of 30,000 and we knew that it was likely she had the NAP1 strain of Clostridium difficile, as that was the strain which infected her and eventually led to his demise. Over the weekend, she has improved and so she has been correctly tapered back to 125 q.i.d. of oral vancomycin and her IV Flagyl has been stopped. At this point, she is improving but still remains weak and dependent on IV hydration. She has gone through a tremendous shock of course with the of her from Clostridium difficile as well as the debility caused by her own serious illness. RECOMMENDATIONS: 1. Continue oral vancomycin 125 q.i.d. through September 12 to complete two weeks of therapy. 2. The patient will likely be ready to be discharged in the next day or two but I think we need to give her some time to recuperate, not only from the serious illness but to adjust, to some degree, to the of her over the weekend from the same disease process this past weekend
[2016-09-02 15:41] VITALS: BP 173/93; PULSE 69; O2SAT 94
[2016-09-02 15:44] VITALS: BP 181/96
--- NOTE | 2016-09-02 15:58 | NUR ---
Social Work-discharge: Data:EMR Reviewed. Pt is on day 4 of hospitalization for syncope per H&P. Pt is medically stable for discharge today. SW confirmed with pt and daughter Baron that pt does not have a PCP. Pt and daughter agreeable to referral to [facility]. SW requested [facility] Specialist assist with this. Appointment scheduled for 09/04 at 1:15 at [facility]. SW provided this information to pt and daughter,both agreeable. Pt and daughter have questions about [facility]HAEL and [facility] care. SW provided aminta care application and also MICHAEL application to be completed for supplemental insurance. Per RN notes, pt has been up independent in her room. Pt to stay with daughter at discharge. Both agreeable to plan. All updated and agreeable to plan. Assessment:Pt who is independent at baseline. Plan:Pt to discharge home today with daughter via POV. PCP appointment scheduled, aminta care and MICHAEL application provided. No other discharge needs identified. All updated and agreeable to plan. UMA Fritz
--- NOTE | 2016-09-02 15:59 | NUR ---
BP Dr Gibbons requested ortho vs prior to dc. lying bp 173/93 hr 69 o2 94, standing bp 181/96 o2 92.
--- NOTE | 2016-09-02 16:37 | NUR ---
Discharge Pt dc at 1430 with daughter. Pt was feeling a bit SOB prior to dc, O2 was taken and pt was at 93% at rest. Pt did drop down to 90% with exertion. Recommended that pt brings this up with follow up appt with on Friday09/04/2016. Daughter and pt understood dc instructions, and new medications ordered. Pt was feeling a lot of anxiety, and sadness due to her passing away yesterday. Reassured pt she needed to go home and rest, and not try and do everything at once. Explained to daughter that rest would be best for her in the next few days prior to follow up appointment. Told both pt and daughter to make sure to address elevated blood pressures pt was having in hospital. Both verbally understood. Pt A&O x 3, steady on feet, sob when ambulating short distances. Taken to front entrance via wc. All belongings accounted for.
== END 2016-09-02 16:35 | disposition home or self-care (01) | DRG 373 ==
LOC: SED 07:33 → MOC 11:40
PROVIDERS: ADMIT Internal Medicine; ATTEND Internal Medicine
DX: A04.7 Enterocolitis due to Clostridium difficile (principal); R55 Syncope and collapse; E87.5 Hyperkalemia; Z87.891 Personal history of nicotine dependence